=== PATIENT | female | born 1965 | race Caucasian/White ===

== ENCOUNTER 2018-10-21 10:11 | Day surgery (SDC) | payer OTHER ==
[~2018-10-21] VITALS: Ht 152.4 cm; Wt 70.6 kg
[2018-10-21] MEDS ORDERED: METFORMIN (10:50)
[2018-10-21] MEDS ORDERED: VITAMIN D3 (10:50)
[2018-10-21] MEDS ORDERED: GABAPENTIN (10:50)
[2018-10-21] MEDS ORDERED: LOSARTAN (10:50)
[2018-10-21] MEDS ORDERED: BASAGLAR KWIKPEN (10:50)
[2018-10-21] MEDS ORDERED: LEVOTHYROXINE (10:50)
[2018-10-21] MEDS ORDERED: MAGNESIUM (10:50)
[2018-10-21] MEDS ORDERED: INVOKANA (10:50)
[2018-10-21 10:54] VITALS: Ht 152.4 cm; Wt 70.6 kg
[2018-10-21 11:16] VITALS: BP 138/67; PULSE 74; RESP 20
[2018-10-21] MEDS ORDERED: FENTAnyl 50 MCG/ML VIAL ONE (11:56)
[2018-10-21] MEDS ORDERED: MIDAZOLAM 1 MG/ML 2 ML INJ ONE ×2 (11:57)
[2018-10-21 12:18] VITALS: BP 121/67; PULSE 70; RESP 14
== END 2018-10-21 12:41 | disposition home or self-care (01) ==
LOC: GIL 10:11
PROVIDERS: ATTEND Internal Medicine Gastroenterology
DX: Z12.11 Encounter for screening for malignant neoplasm of colon (principal); K64.8 Other hemorrhoids; I10 Essential (primary) hypertension; E11.9 Type 2 diabetes mellitus without complications
CPT/HCPCS: 45378; 82962; 84703; J2250; J3010; Z7610